=== PATIENT | male | born 1940 | race Caucasian/White ===

== ENCOUNTER → 2017-11-18 11:16 | Outpatient (CLI) | payer OTHER, SELFPAY ==
--- NOTE | 2017-11-18 | DI.CT.S_ITS ---
PROCEDURE: CT ABDOMEN PELVIS WO/W CON INDICATIONS: 77-year-old male with gross hematuria. TECHNIQUE: Optional 5 mm thick noncontrast images acquired from the diaphragm to the symphysis pubis. After the administration of intravenous contrast, 5 mm thick images acquired from the diaphragm to the symphysis pubis after a 10-minute delay. 2 mm thick coronal and sagittal reformats were then performed of the kidneys and ureters. For radiation dose reduction, the following was used: automated exposure control, adjustment of mA and/or kV according to patient size. COMPARISON: None. FINDINGS: Image quality: Excellent. Lung bases: Lung bases demonstrate scattered subpleural reticular calcifications. There is patchy posterior right lower lobe airspace opacity as well. Heart size is normal. Urinary system: Both kidneys are normal in size, without hydronephrosis or nephrolithiasis on pre-contrast images. No perinephric fat stranding. There is normal bilateral renal enhancement. Renal calyces appear normal in morphology when filled with contrast. Opacified portions of both ureters demonstrate normal caliber. Bladder wall thickness is diffusely increased, with scattered trabeculations. No calcified bladder stones. Other solid organs: Liver is normal in size and enhancement. Gallbladder wall thickness is normal. Biliary system is non dilated. Pancreas enhances normally. Spleen is normal in size and enhancement. No adrenal nodules. Peritoneum and bowel: Bowel loops demonstrate normal wall thickness and caliber. There is mild sigmoid colon diverticulosis. The appendix appears normal in caliber, containing an oblong appendicolith at its tip. No free fluid or air. Nodes and vessels: No retroperitoneal or mesenteric adenopathy by size criteria. Aorta and inferior vena cava are normal in size, with moderate aorto iliac atherosclerosis. Abdominal wall: No ventral hernias. Pelvis: There is enlargement of the prostate gland, measuring 6.3 x 5.3 cm in axial dimensions. No pathologic free pelvic fluid. No inguinal hernias or adenopathy. Bones: No suspicious bony lesions. No vertebral body compression fractures. There is multilevel lumbar and lower thoracic spine disc degeneration. L2 superior endplate Schmorl's node is present from disc degeneration. IMPRESSION: 1. No imaging explanation for gross hematuria. As such, further evaluation with cystoscopy may be warranted. 2. Diffuse bladder wall thickening with scattered trabeculations, consistent with chronic bladder outlet obstruction in the setting of an enlarged prostate gland, presumably from benign prostatic hyperplasia. Concomitant prostate neoplasm cannot be excluded based on CT imaging appearances. 3. 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 Asymmetric posterior right lower lobe airspace opacity may represent evolving pneumonia. 4. Mild sigmoid colon diverticulosis. Dictated by: Estevan Meeks M.D. on 11/18/2017 at 15:08 Approved by: Estevan Meeks M.D. on 11/18/2017 at 15:21
== END ==
PROVIDERS: PCP Family Medicine; Visit Provider Specialist
DX: R31.0 Gross hematuria (principal); N32.89 Other specified disorders of bladder
CPT/HCPCS: 74178; Q9967